=== PATIENT | female | born 1950 | race Caucasian/White ===

== ENCOUNTER → 2020-11-22 08:40 | Outpatient (REF) | payer MEDICARE, SELFPAY | LOC: ANHLAB 08:40 | PROVIDERS: PCP Internal Medicine; Visit Provider Nurse Practitioner | DX: L72.11 Pilar cyst (principal) | CPT/HCPCS: 88304 ==

== ENCOUNTER 2025-09-10 09:37 | Outpatient (CLI) | payer MEDICARE, SELFPAY ==
--- NOTE | ~2025-09-10 | XR_ITS ---
EXAMINATION: XR shoulder LT min 2V, 09/10/2025 10:05 CDT HISTORY: Pain in lt shoulder/ cervicalgia COMPARISON: No comparisons available. Findings: No acute fracture or malalignment. Moderate degenerative changes Soft tissues unremarkable. Impression: No acute fracture or malalignment. Reviewed, dictated and finalized at location P. Impression: No acute fracture or malalignment.
--- NOTE | ~2025-09-10 | XR_ITS ---
XR cervical spine min 6V Indication: Pain in lt shoulder/ cervicalgia Comparison: None Findings: Moderate loss of vertebral height throughout, grade 1 anterolisthesis of C3 on C4 with grade 1 retrolisthesis of C5 on C6, no acute fracture identified. Severe loss of disc height throughout. Soft tissues unremarkable Impression: No acute abnormality. Reviewed, dictated and finalized at location P. Impression: No acute abnormality.
== END 2025-09-10 09:38 | disposition home or self-care (01) ==
PROVIDERS: PCP Internal Medicine; Visit Provider Internal Medicine
DX: M19.012 Primary osteoarthritis, left shoulder (principal); M48.52XA Collapsed vertebra, not elsewhere classified, cervical region, initial encounter for fracture; M43.12 Spondylolisthesis, cervical region
CPT/HCPCS: 72052; 73030